=== PATIENT | female | born 1950 | race Caucasian/White ===

== ENCOUNTER 2018-03-27 16:09 | Emergency (ER) | payer MEDICARE, BC ==
[~2018-03-27] VITALS: Ht 157.5 cm; Wt 54.5 kg
[2018-03-27 16:15] VITALS: Ht 157.5 cm; Wt 54.5 kg
[2018-03-27 17:44] LABS: BASOPHILS 0.5 % (0-2); HEMATOCRIT 30.9 % (36.0-48.0); HEMOGLOBIN 9.8 g/dL (12-16); IMMATURE GRANULOCYTES 0.3 % (0-5); LYMPHOCYTES 21.5 % (15-50); MCH 30.6 pg (26.0-34.0); MCHC 31.7 g/dL (31.0-37.0); MCV 96.6 fL (80.0-100.0); MEAN PLATELET VOLUME 8.5 fL (7.4-10.4); MONOCYTES 6.5 % (2-11); NEUTROPHILS 62.2 % (40-80); PLATELET COUNT 471 10x3/uL (130-400); RDW 13.3 % (11.5-14.5)
[2018-03-27 18:09] LABS: ALBUMIN 2.6 g/dL (3.4-5.0); ALKALINE PHOSPHATASE 122 U/L (46-116); ALT (SGPT) 18 U/L (10-68); APTT 29.5 SECONDS (22.8-39.4); BILIRUBIN - TOTAL 0.09 mg/dL (0.2-1.3); CALC OSMOLALITY 287 mosm/kg (275-300); CALCIUM 8.1 mg/dL (8.5-10.1); CARBON DIOXIDE 30.1 mmol/L (21.0-32.0); CHLORIDE - SERUM 107 mmol/L (98-107); CREATININE - SERUM 0.6 mg/dL (0.6-1.3); GLUCOSE 151 mg/dL (74-106); INR 1.09 (0.85-1.17); POTASSIUM - SERUM 4.2 mmol/L (3.5-5.1); PROTEIN - SERUM 5.9 g/dL (6.4-8.2); PROTIME 13.7 SECONDS (11.6-15.0); SODIUM 143 mmol/L (136-145); UREA NITROGEN 12 mg/dL (7-18); eGFR NON AFRICAN AMERICAN > 90 mL/min (90-120)
[2018-03-27 18:54] LABS: CKMB 1.1 U/L (0.0-3.6); CREATINE KINASE 39 UL (21-215); MAGNESIUM - SERUM 2.1 mg/dL (1.8-2.4); PRO BNP 1280 pg/mL (0-125)
[2018-03-27 18:59] LABS: TROPONIN-I 0.503 ng/mL (0.000-0.060)
[2018-03-27 19:38] VITALS: BP 119/60
== END 2018-03-27 19:38 | disposition home or self-care (01) ==
LOC: D.ER 16:09
PROVIDERS: Family Medicine
DX: I47.1 Supraventricular tachycardia (principal); E05.00 Thyrotoxicosis with diffuse goiter without thyrotoxic crisis or storm; I10 Essential (primary) hypertension; F17.200 Nicotine dependence, unspecified, uncomplicated

== ENCOUNTER 2018-10-26 20:49 | Inpatient (IN) | payer MEDICARE, BC ==
[~2018-10-26] VITALS: Ht 157.5 cm; Wt 55.1 kg
--- NOTE | ~2018-10-26 | HEMODYNAMI ---
PATIENT:MARITA LARRY MEDICAL RECORD: [id number] : 50 LOCATION:[facility] D2305 ADMISSION DATE: 10/26/18 Generatedon:10/29/201811:32 Patient name: MARITA LARRY Patient #: [id number] SSN: : 1950 Date of study: 10/29/2018 Page: Of Hemodynamic Procedure Report Patient Data Patient Demographics Procedure consent was obtained First Name: MARITA Gender: Female Last Name: LARON : 1950 Patient #: [id number] Age: 67 year(s) Race: Unknown Additional ID: [id number] Contact details [address]: [address] [place] [address] [place]ard[place] State: [place] City: [facility] Zip code: [address] Past Medical History Allergies Allergen Reaction Date Comments Reported Other allergy 10/29/2018 hydrocodone, levofloxacin Admission Admission Data Admission Date: 10/26/2018 Admission Time: 23:52 Room #: D2305 Height (in.): 62 BSA: 1.53 (m2) Height (cm.): 157.48 BMI: 21.77 (kg/m2) Weight (lbs.): 119 Weight (kg.): 53.98 Procedure Procedure Types Cath Procedure Peripheral Cath Diagnostic Procedure Abd/Extremity Aortagram Procedure Description Procedure Date Procedure Date: 10/29/2018 Procedure Start Time: 10:27 Procedure Staff Name Function Morgan Patel MD Performing Physician Gayatri Diaz RT Track Superintendent Shweta Castaneda RN Nurse Ankit Yee RT Scrub Procedure Data Cath Procedure Fluoroscopy Diagnostic fluoroscopy Total fluoroscopy Time: time: 10.1 min 10.1 min Diagnostic fluoroscopy Total fluoroscopy dose: 146 dose: 146 mGy mGy Contrast Material Contrast Material Type Amount (ml) Isovue 300 175 Entry Location Entry Primary Successful Side Size Upsize Upsize Entry Closure Succes sful Closure Location (Fr) 1 (Fr) 2 (Fr) Remarks Device Remarks Femoral Exoseal artery Diagnostic catheters Device Type Used For End Catheter Placement Merit ULTRA BOLUS FLUSH 5Fr 90CM catheter ([id number]) Merit 5Fr Mikaless catheter ([id number]) Procedure Medications Medication Administration Route Dosage Lidocaine 1% added to field 20 Heparin Flush Bag added to field 3 bags (1000units/500ml NS) Versed I.V. 1 mg Fentanyl I.V. 50 mcg Benadryl I.V. 25 mg Versed I.V. 1 mg Fentanyl I.V. 50 mcg Versed I.V. 1 mg Versed I.V. 1 mg Hemodynamics Rest BSA: 1.53 (m2) O2 Consumption: Estimated: 140.67 (ml/min) O2 Consumption indexed : Estimated:91.94 (ml/min/m) Heart Rate: 68 (bpm) Snapshots Pre Cath Intra NCS Post Cath Vital Signs Time Heart Resp SPO2 etCO2 NIBP (mmHg) Rhythm Pain Sedation Rate (ipm) (%) (mmHg) Status Level (bpm) 10:20:57 68 23 89 32.2 135/66(86) NSR 0 (11) 9(A) , No pain 10:28:48 68 16 94 26.9 140/62(112) NSR 0 (11) 9(A) , No pain 10:33:08 64 94 17.9 135/62(98) NSR 0 (11) 9(A) , No pain 10:37:24 64 39 92 47.1 113/57(75) NSR 0 (11) 8(A) , No pain 10:41:38 65 13 94 1.4 117/55(76) NSR 0 (11) 8(A) , No pain 10:45:54 66 9 97 8.9 116/58(78) NSR 0 (11) 8(A) , No pain 10:50:06 71 10 98 10.4 123/60(84) NSR 0 (11) 8(A) , No pain 10:54:24 66 11 98 8.9 133/57(107) NSR 0 (11) 8(A) , No pain 10:58:44 68 14 98 9.7 141/60(85) NSR 0 (11) 8(A) , No pain 11:03:05 67 15 98 10.4 139/66(85) NSR 0 (11) 8(A) , No pain 11:08:04 76 15 98 11.9 Measuring NSR 0 (11) 8(A) , No pain 11:08:20 75 15 98 10.4 133/73(95) NSR 0 (11) 8(A) , No pain 11:12:36 69 13 98 13.4 146/73(89) NSR 0 (11) 8(A) , No pain 11:16:52 70 13 98 32.9 138/66(94) NSR 0 (11) 8(A) , No pain 11:21:06 69 17 98 23.2 123/61(106) NSR 0 (11) 8(A) , No pain 11:25:20 67 14 98 8.9 141/68(100) NSR 0 (11) 8(A) , No pain 11:29:36 67 14 98 11.2 140/66(98) NSR 0 (11) 8(A) , No pain Medications Time Medication Route Dose Verified Delivered Reason Notes Effe ctiveness by by 10:19:10 Lidocaine 1% added 20ml Morgan Mora for local to vial Patel Patel anesthetic field MD RODRÍGUEZ 10:19:25 Heparin Flush added 3 Morgan Mora used for Bag to bags Patel Patel procedure (1000units/500ml field MD RODRÍGUEZ NS) 10:28:53 Versed I.V. 1 mg Morgan Rock for Patel Leonel RN sedation 10:29:04 Fentanyl I.V. 50 Morgan Shweta for mcg Patel Leonel RN sedation 10:30:18 Benadryl I.V. 25 mg Morgan Buchananody for Patel Leonel RN sedation 10:33:09 Versed I.V. 1 mg Morgan Shweta for Patel Leonel RN sedation 10:33:17 Fentanyl I.V. 50 Morgan Shweta for mcg Patel Leonel RN sedation 11:08:55 Versed I.V. 1 mg Morgan Shweta for Patel Leonel RN sedation 11:12:29 Versed I.V. 1 mg Morgan Shweta for Patel Leonel RN sedation Procedure Log Time Note 9:54:35 Patient Height : 62 inches 9:54:41 Patient Weight : 119 lbs 9:55:21 Use device set IR Diagnostic 9:55:24 Tegaderm 4 x 4 (1626W) opened to sterile field. 9:55:25 Sterile Angiographic Pack opened to sterile field. 9:55:27 Bag Decanter (2002S) opened to sterile field. 9:55:27 ACIST Manifold (09849) opened to sterile field. 9:55:28 ACIST Hand Control (39780) opened to sterile field. 9:55:29 ACIST Syringe (33273) opened to sterile field. 9:55:35 - 10:00:29 Time tracking: Regular hours (M-F 7:00 - 5:00) 10:01:05 Plan of Care:Hemodynamics will remain stable., Cardiac rhythm will remain stable., Comfort level will be maintained., Respiratory function will remain adequate., Patient/ family verbilizes understanding of procedure., Procedure tolerated without complication., Recovers from procedure without complications.. 10:01:12 Patient received from ICU to IR Alert and oriented. Tansferred to table in Supine position. 10:01:14 Signed procedure consent form obtained from patient. 10:01:19 H&P Date Dictated: 10/29/2018 Within 30 days and on chart.. 10:01:22 Pre-procedure instructions explained to patient. 10:01:22 Pre-op teaching completed and patient verbalized understanding. 10:01:24 Family in waiting room. 10:01:26 Patient NPO since Midnight. 10:02:54 Patient allergic to Other allergyhydrocodone, levofloxacin 10:03:00 Is the patient allergic to Iodine/contrast media? No. 10:03:04 Is patient on blood thinner?No 10:03:07 Patient diabetic? No. 10:03:10 - 10:03:11 ----Pre-sedation anethsthesia assessment.---- 10:03:15 Previous problem with sedation/anesthesia? No ? 10:03:22 Snore? Yes 10:03:24 Sleep apnea? No 10:03:26 Deviated septum? No 10:03:28 Opens mouth fully? Yes 10:03:30 Sticks out tongue? Yes 10:03:54 Airway obstruction? No ? 10:04:00 Dentures? No ? 10:04:03 - 10:04:35 Pre procedure: right dorsailis pedis pulse 2+ Normal; easily identifiable; not easily obliterated 10:04:47 Pre procedure: left dorsailis pedis pulse 2+ Normal; easily identifiable; not easily obliterated 10:05:37 Pre procedure: right posterior tibial pulse 2+ Normal; easily identifiable; not easily obliterated 10:06:14 Pre procedure: left posterior tibial pulse 1+ Palpable, but thready & weak; easily obliterated 10:06:30 IV patent on arrival in left antecubital with D5/.45%NaCl at KVO. 10:06:37 Right groin area was prepped with chlora-prep and draped in sterile fashion 10:06:39 - 10:06:57 PERCUTANEOUS ENTRY 19GA needle opened to sterile field. 10:06:58 SHEATH 5FR [place] (HQY093) opened to sterile field. 10:07:07 DOC .035 wire (B61991) opened to sterile field. 10:19:10 Lidocaine 1% 20ml vial added to field was administered by Morgan Patel MD; for local anesthetic; 10:19:25 Heparin Flush Bag (1000units/500ml NS) 3 bags added to field was administered by Morgan Patel MD; used for procedure; 10::46 Physician arrived 10::49 --------ALL STOP TIME OUT------ 10::50 Final Timeout: patient, procedure, and site verified with staff and physician. All members of the team are in agreement. 10::50 Final Timeout: patient, procedure, and site verified with staff and physician. All members of the team are in agreement. 10::07 Procedure started. 10::08 Full Disclosure recording started 10:27:11 Local anesthetic to right femoral artery with Lidocaine 1% by Morgan Patel MD.INITIAL ACCESS ONLY 10::32 A [employer] Technologies ULTRA BOLUS FLUSH 5Fr 90CM catheter ([id number]) was advanced over the wire and used for . 10::41 ECG and BP/O2 sat monitors applied to patient. 10::41 Vital chart was started 10::42 Baseline sample Acquired. 10:28:53 Versed 1 mg I.V. was administered by Shweta Castaneda RN; for sedation; 10:29:04 Fentanyl 50 mcg I.V. was administered by Shweta Castaneda RN; for sedation ; 10:30:18 Benadryl 25 mg I.V. was administered by Shweta Castaneda RN; for sedation; 10:33:09 Versed 1 mg I.V. was administered by Shweta Castaneda RN; for sedation; 10:33:17 Fentanyl 50 mcg I.V. was administered by Shweta Castaneda RN; for sedation ; 10:33:29 GLIDE CATHETER 5FR ANGLED 65cm (CG507) opened to sterile field. 10:35:00 GLIDE WIRE ANGLE 180cm (YW2651) opened to sterile field. 10:35:13 TORQUE DEVICE PLASTIC .038 ( TD01) opened to sterile field. 10:37:44 A [employer] Technologies 5Fr Mikaless catheter (186943) was advanced over the wire and used for . 10:55:20 RENEGADE HI-MARY microcatheter ([id number]) opened to sterile field. 10:55:21 TRANSEND STEERABLE wire ([id number]) opened to sterile field. 11:07:41 COIL Positioning Wire ([id number]) opened to sterile field. 11:08:55 Versed 1 mg I.V. was administered by Shweta Castaneda RN; for sedation; 11:09:52 COIL Micronester 3mm (I08532) opened to sterile field. 11:11:24 COIL Vortex Marce 18 3X3 ([id number]) opened to sterile field. 11:11:24 COIL Vortex Marce 18 3X3 ([id number]) opened to sterile field. 11:12:29 Versed 1 mg I.V. was administered by Shweta Castaneda RN; for sedation; 11:17:35 EXOSEAL 5Fr (EX500) opened to sterile field. 11:22:30 Sheath removed intact; hemostasis achieved with Exoseal to the Femoral artery. 11:22:30 A sheath was inserted into the Femoral artery 11:22:35 Procedure ended.(Physican Out) 11:22:57 Fluoroscopy time 10.10 minutes. 11:23:14 Flurop Dose total: 146 11:23:14 Fluoroscopy dose: 146 mGy 11:23:19 Contrast amount:Isovue 300 175ml. 11:23:22 Procedure and supply charges have been captured, reviewed, submitted an d are correct. 11:28:11 Report given to ICU. 11:32:08 Vital chart was stopped Device Usage Item Name Manufacture Quantity Catalog Number [facility] Lot# / Charge Number Stock Stock Serial# Code Tegaderm 4 x 4 3M 1 [id number] 313593 5 (1626W) Sterile Cardinal 1 [id number] 108829 786721 5 Angiographic Health Pack Bag Decanter Microtek 1 038031 15409 709785 5 () Medical Inc. ACIST Manifold Acist 1 87113 806930 810241 420962 5 (68846) Medical Systems Inc ACIST Hand Acist 1 70450 295577 842140 263404 5 Control Medical (52596) Systems Inc ACIST Syringe Acist 1 70840 673826 101636 990039 20 (77338) Medical Systems Inc PERCUTANEOUS Cook Medical 1 H15538 197498 180739 5 9455846 ENTRY 19GA needle SHEATH 5FR Terumo 1 KKM558 843190 500607 311238 5 Eldorado (OGD214) DOC .035 wire Cook Medical 1 N56038 561760 260774 5 (S83633) Merit ULTRA Merit 1 [id number] 283383 973334 5 BOLUS FLUSH Medical 5Fr 90CM catheter ([id number]) GLIDE CATHETER Terumo 1 CG507 889353 500447 5 5FR ANGLED 65cm (CG507) GLIDE WIRE Terumo 1 VY9302 888339 383960 592937 5 ANGLE 180cm (LK3716) TORQUE DEVICE [place] 1 TD01 882524 878005 431939 5 PLASTIC .038 ( Scientific TD01) Merit 5Fr Merit 1 921582 442631 255789 5 [facility] Medical catheter (737702) RENEGADE [place] 1 [id number] 852517 877043 5 HI-MARY Scientific microcatheter ([id number]) TRANSEND [place] 1 [id number] 631843 074507 5 STEERABLE wire Scientific ([id number]) COIL [place] 1 [id number] 496827 355760 084544 5 Positioning Scientific Wire ([id number]) COIL Cook Medical 1 K20282 341512 767933 1 6932708 Micronester 3mm (L23191) COIL Vortex Cook Medical 2 [id number] 360692 491638 5 [id number] Marce 18 3X3 [id number] ([id number]) EXOSEAL 5Fr Cardinal 1 EX500 700430 024865 104923 10 [id number] (EX500) Health Signature Audit [place] Stage Time Signature Unsigned Intra-Procedure 10/29/2018 Gayatri Diaz 11:31:57 AM RT(R) [address] [address]
[2018-10-26 21:39] LABS: BASOPHILS 0.5 % (0-2); EOSINOPHILS 5.8 % (0-7); HEMATOCRIT 45.5 % (36.0-48.0); HEMOGLOBIN 15.1 g/dL (12-16); IMMATURE GRANULOCYTES 0.1 % (0-5); LYMPHOCYTES 39.6 % (15-50); MCH 31.6 pg (26.0-34.0); MCHC 33.2 g/dL (31.0-37.0); MCV 95.2 fL (80.0-100.0); MEAN PLATELET VOLUME 9.1 fL (7.4-10.4); PLATELET COUNT 370 10x3/uL (130-400); RBC 4.78 10x6/uL (4.00-5.40); RDW 13.6 % (11.5-14.5); WBC 8.5 10x3/uL (4.8-10.8)
[2018-10-26 21:45] VITALS: BP 171/78
[2018-10-26 21:46] LABS: APTT 32.5 SECONDS (22.8-39.4)
[2018-10-26 21:47] LABS: INR 0.99 (0.85-1.17); PROTIME 12.6 SECONDS (11.6-15.0)
[2018-10-26 21:48] LABS: D-DIMER-QUANTITATIVE 0.92 ug/mLFEU (0.20-0.54)
[2018-10-26 21:53] LABS: ALBUMIN 3.6 g/dL (3.4-5.0); ALKALINE PHOSPHATASE 97 U/L (46-116); ALT (SGPT) 35 U/L (10-68); BILIRUBIN - TOTAL 0.17 mg/dL (0.2-1.3); CALC OSMOLALITY 286 mosm/kg (275-300); CALCIUM 8.9 mg/dL (8.5-10.1); CARBON DIOXIDE 30.9 mmol/L (21.0-32.0); CHLORIDE - SERUM 105 mmol/L (98-107); CREATININE - SERUM 0.6 mg/dL (0.6-1.3); GLUCOSE 98 mg/dL (74-106); POTASSIUM - SERUM 3.7 mmol/L (3.5-5.1); SODIUM 144 mmol/L (136-145); UREA NITROGEN 12 mg/dL (7-18); eGFR NON AFRICAN AMERICAN > 90 mL/min (90-120)
[2018-10-26 22:09] LABS: CKMB 0.5 U/L (0.0-3.6); CREATINE KINASE 101 UL (21-215); PRO BNP 169 pg/mL (0-125)
[2018-10-26 22:15] VITALS: BP 138/72
[2018-10-26 22:15] LABS: TROPONIN-I 0.224 ng/mL (0.000-0.060)
--- NOTE | 2018-10-26 22:50 | NUR ---
PT COUGHING UP MORE BLOOD AT THIS TIME MD INFORMED SEE EMAR. DR CHELSI DOMINGUEZ. PT UNABLE TO LAY FLAT FOR CTA
[2018-10-26 22:52] VITALS: BP 166/62
[2018-10-26 22:55] VITALS: BP 152/71
[2018-10-26 23:00] VITALS: BP 152/77
--- NOTE | 2018-10-26 23:20 | NUR ---
PT TAKEN TO CT AT THIS TIME. COUGHING/ BLEEDING LESSENED AT THIS TIME.
--- NOTE | 2018-10-26 23:32 | NUR ---
DR GAGNON AT BEDSIDE
[2018-10-26 23:34] VITALS: BP 109/64
[2018-10-26] MEDS ORDERED: NORVASC2.5 MG PO (23:35)
[2018-10-26] MEDS ORDERED: OS-CAL500 MG (23:35)
[2018-10-26] MEDS ORDERED: XANAX0.25 MG PO (23:36)
[2018-10-26] MEDS ORDERED: BAYER ASPIRIN325 MG PO (23:36)
[2018-10-26] MEDS ORDERED: BYSTOLIC5 MG PO (23:36)
[2018-10-26] MEDS ORDERED: METOLAZONE5 MG PO (23:36)
[2018-10-26] MEDS ORDERED: FIBERCON625 MG PO (23:36)
[2018-10-26] MEDS ORDERED: CRESTOR5 MG PO (23:37)
[2018-10-26] MEDS ORDERED: MOTRIN600 MG PEG (23:40)
[2018-10-27] VITALS (33 sets, daily range): BP systolic 94–173; BP diastolic 63–91; BMI 21.5; BMI 21.4
--- NOTE | 2018-10-27 | NUR ---
LAB AT BEDSIDE FOR SEBASTIÁN MILLER. PT INFORMED SHE WILL BE ADMITED PT OK WITH POC DAUGHTER AND SON AT BEDSIDE
--- NOTE | 2018-10-27 01:14 | NUR ---
PT ARRIVED ON UNIT VIA WHEELCHAIR ACCOMPANIED BY ER STAFF. COMPLAINS OF SHOULDER PAIN, REQUESTS IBUPROFEN AND ALPRAZOLAM, EXPLAINED TO PATIENT THAT THE HAS NOT RESTARTED ANY HOME MEDS AT THIS TIME AND SHE WOULD NEED TO SPEAK WITH HIM ABOUT SAID MEDICATIONS IN THE MORNING. ASSESSMENT COMPLETED SEE FLOWSHEET. VSS W/ ELEVATED SYSTOLIC NOTED - CPOC
--- NOTE | 2018-10-27 03:00 | NUR ---
REASSESSMENT COMPLETED SEE FLOWSHEET
--- NOTE | 2018-10-27 04:56 | NUR ---
PATIENT RESTING WITH EYES CLOSED EVEN RISE AND FALL OF CHEST NO APPARANT DISTRESS, VSS CPOC
--- NOTE | 2018-10-27 09:53 | NUR ---
0700 ASSESSMENT COMPLETE VOICES NO C/O PAIN
--- NOTE | 2018-10-27 09:54 | NUR ---
0900 DR MCGUIRE AT BEDSIDE UPDATING PATIENT ON HIS PLAN OF CARE FOR HER. SCHEDULED BRONCHOSCOPY FOR 1100AM CONSENTS ARE SIGNED
--- NOTE | 2018-10-27 11:07 | NUR ---
MOR[JAIMIE 2MG AND ZOFRAN 8MG HAVE BEEN GIVEN IV PREOP FOR BRONCHOSCOPY ALLOWED DTR TO COME IN FOR A BRIEF MONENT PRIOR TO PROCEEDURE
--- NOTE | 2018-10-27 12:04 | NUR ---
1100 BRONCH TEAM PREPARING PATIENT AND EQUIPMENT FOR BRONCH
--- NOTE | 2018-10-27 12:17 | NUR ---
1045 ONLY GAVE 2MG OF MORPHINE PER MD
--- NOTE | 2018-10-27 12:17 | NUR ---
1215 [facility] BEGAN WITH GHADA AND DR Bette MCGUIRE
--- NOTE | 2018-10-27 12:49 | NUR ---
1249 AWAKE AND ALERT ASKING QUESTIONS PLACED ON OXYMIZER AT 15L
--- NOTE | 2018-10-27 13:12 | NUR ---
1250 INSTRUCTED NPO UNTIL 1345. VERBALIZED UNDERSTANDING
--- NOTE | 2018-10-27 18:33 | NUR ---
1350 ICE CHIPS GIVEN AMALIA WELL
--- NOTE | 2018-10-27 18:34 | NUR ---
1500 RESTING QUIETLY NO DISTRESS NOTED
--- NOTE | 2018-10-27 18:34 | NUR ---
1700 APPLESAUSE GIVEN AFTWE ZOFRAN 4MG IV GIVEN.
--- NOTE | 2018-10-27 19:34 | NUR ---
BEDSIDE SHIFT REPORT GIVEN BY DEPARTING RN USING SBAR. PT LAYING IN BED WITH EYES CLOSED. AAOX4. C/O BACK, SHOULDER, AND EYE PAIN RATING IT A 8/10 ON SCALE. VSS. VOICES NO NEEDS AT THIS TIME. C/O OF NAUSEA THAT COMES AND GOES. RT AC PIV SALINE LOCKED. ASSESSMENT COMPLETE. SEE FLOWSHEET FOR FULL DETAILS. SAFETY PRECAUTIONS IN PLACE. CBIR. WILL CONTINUE TO MONITOR.
--- NOTE | 2018-10-27 20:28 | NUR ---
FAMILY AT BEDSIDE. UPDATE GIVEN. ALL QUESTIONS ANSWERED.
--- NOTE | 2018-10-27 20:28 | NUR ---
FAMILY CALLED FOR UPDATE. PASSWORD GIVEN. ALL QUESTIONS ANSWERED.
--- NOTE | 2018-10-27 20:34 | NUR ---
HS MEDS GIVEN. SEE MAR FOR DETAILS. SWALLOWED PO MEDS WITHOUT DIFFICULTY.
--- NOTE | 2018-10-27 23:51 | NUR ---
REASSESSMENT COMPLETE. NO CHANGES NOTED. PT ASLEEP SHOWING NO SS OF DISTRESS.
[2018-10-28] VITALS (24 sets, daily range): BP systolic 93–162; BP diastolic 55–104
[2018-10-28 04:32] LABS: BASOPHILS 0.1 % (0-2); EOSINOPHILS 0.4 % (0-7); HEMATOCRIT 40.8 % (36.0-48.0); HEMOGLOBIN 13.1 g/dL (12-16); IMMATURE GRANULOCYTES 0.2 % (0-5); LYMPHOCYTES 17.6 % (15-50); MCH 30.9 pg (26.0-34.0); MCHC 32.1 g/dL (31.0-37.0); MCV 96.2 fL (80.0-100.0); MEAN PLATELET VOLUME 9.4 fL (7.4-10.4); MONOCYTES 5.2 % (2-11); NEUTROPHILS 76.5 % (40-80); PLATELET COUNT 342 10x3/uL (130-400); RBC 4.24 10x6/uL (4.00-5.40); RDW 13.6 % (11.5-14.5)
[2018-10-28 04:39] LABS: WBC 13.6 10x3/uL (4.8-10.8)
[2018-10-28 04:42] LABS: APTT 33.4 SECONDS (22.8-39.4); INR 1.15 (0.85-1.17); PROTIME 14.2 SECONDS (11.6-15.0)
[2018-10-28 04:44] LABS: CALC OSMOLALITY 280 mosm/kg (275-300); CALCIUM 7.9 mg/dL (8.5-10.1); CARBON DIOXIDE 28.9 mmol/L (21.0-32.0); CHLORIDE - SERUM 101 mmol/L (98-107); CREATININE - SERUM 0.7 mg/dL (0.6-1.3); GLUCOSE 101 mg/dL (74-106); MAGNESIUM - SERUM 1.8 mg/dL (1.8-2.4); PHOSPHOROUS 3.8 mg/dL (2.5-4.9); POTASSIUM - SERUM 3.6 mmol/L (3.5-5.1); SODIUM 139 mmol/L (136-145); eGFR NON AFRICAN AMERICAN 88 mL/min (90-120)
[2018-10-28 04:51] LABS: UREA NITROGEN 21 mg/dL (7-18)
--- NOTE | 2018-10-28 07:15 | NUR ---
REPORT RECEIVED. ASSESSMENT COMPLETE PER FLOW SHEET. REFER FOR FINDINGS. VSS DENIES NEEDS WILL CONTINUE TO MONITOR
--- NOTE | 2018-10-28 08:00 | NUR ---
ATE 75% BREAKFAST
--- NOTE | 2018-10-28 08:27 | NUR ---
PT ASSISTED TO BEDSIDE COMMODE. LARGE BM NTOED.
--- NOTE | 2018-10-28 09:00 | NUR ---
MEDS ADM ATE 40% BREAKFAST DENIES NEEDS
--- NOTE | 2018-10-28 11:00 | NUR ---
REASSESSMENT OCMPLETE PER FLOW SHEET. VSS. NO NEW CHANGE DR DOUGHERTY AT BEDSIDE. GIVEN UDPATE.
--- NOTE | 2018-10-28 13:00 | NUR ---
ASSISTED TO BEDSIDE COMMODE LARGE LOOSE BM NTOED.
--- NOTE | 2018-10-28 15:00 | NUR ---
REASSESSMENT COMPLETE PER FLOW SHEET. VSS. NO NEW CHANGES WILL CONTINUE TO MONITOR
--- NOTE | 2018-10-28 16:58 | NUR ---
FAMILY AT BEDSIDE. GIVEN UDPATE.
--- NOTE | 2018-10-28 17:55 | MORECARE ---
CASE MANAGEMENT DISCHARGE SUMMARY PATIENT: MARITA LARRY UNIT: [id number] ADM DATE: 10/26/18 AGE: 67 : 50 SEX: F ROOM/BED: D.2305 AUTHOR: ZHAO ANTONIO PHYSICIAN: REFERRING PHYSICIAN: ANGELA JIANG MD DATE OF SERVICE: 10/28/18 Discharge Plan Patient Name: MARITA LARRY [facility] [facility] 1950 Planned Disposition: Anticipated Discharge Date: Discharge Date: Expected LOS: Initial Reviewer: [email or web address] Initial Review Date: 10/27/2018 Generated: 10/28/18 6:55 pm Comments DCP- Discharge Planning Updated by [email or web address]: Carola Pandey on 10/28/18 3:[address] CM attempted to meet with patient she is currently having bronchoscopy . CM will come back and evaluate at a later time. CM will continue to follow and assist as needed with discharge planning/ needs. Patient Name: MARITA LARRY Page [phone] at 1755 All edits/amendments must be made on the electronic document DICTATION DATE: 10/28/181754 DATA REPORT ANALYST: MARIA ANTONIA 10/28/181754 RPT#: [id number] DC DATE: STATUS: ADM IN [facility] [address] [place] [address] END OF REPORT
[2018-10-28 19:09] LABS: ACID FAST SMEAR Negative (()); AFB SPECIMEN PROCESSING Concentration (())
--- NOTE | 2018-10-28 20:02 | NUR ---
1930-FOUND PATIENT STANDING IN DOORWAY. ASK PATIENT WHAT SHE NEEDED AND SHE STATED SHE THOUGH SOMEONE WANTED TO SEE HER OR CALLED FOR HER. PATIENT HAD ALL LINES AND BLOOD PRESSURE CUFF WRAPPED AROUND LEGS. ASSISTED PATIENT BACK TO BED AND ASK HER TO PLEASE CALL NURSES BEFORE SHE GETS UP; SHE STATED CALL LIGHT WOULD NOT WORK. FOUND PATIENT CALL LIGHT LAYING ON BED BESIDE HER AND PUSHED THE RED NURSE CALL ENRIQUEZ AND THE LIGHT CAME ON IMMEDIATLEY. REORIENTED PATIENT TO CALL LIGHT AND THAT IT WAS WORKING AND ASK IF SHE WOULD CALL US BEFORE GETTING UP TO HELP PREVENT HER FROM FALLING. PATIENT STATES SHE WILL USE CALL LIGHT.
[2018-10-29] VITALS (22 sets, daily range): BP systolic 111–143; BP diastolic 59–83
[2018-10-29 04:17] LABS: BASOPHILS 0.2 % (0-2); HEMATOCRIT 38.2 % (36.0-48.0); HEMOGLOBIN 12.3 g/dL (12-16); IMMATURE GRANULOCYTES 0.3 % (0-5); LYMPHOCYTES 19.3 % (15-50); MCH 31.1 pg (26.0-34.0); MCHC 32.2 g/dL (31.0-37.0); MCV 96.5 fL (80.0-100.0); MEAN PLATELET VOLUME 9.5 fL (7.4-10.4); MONOCYTES 5.7 % (2-11); NEUTROPHILS 73.5 % (40-80); PLATELET COUNT 304 10x3/uL (130-400); RBC 3.96 10x6/uL (4.00-5.40); RDW 13.4 % (11.5-14.5); WBC 10.9 10x3/uL (4.8-10.8)
[2018-10-29 04:30] LABS: INR 1.07 (0.85-1.17); PROTIME 13.4 SECONDS (11.6-15.0)
[2018-10-29 04:41] LABS: ALBUMIN 2.7 g/dL (3.4-5.0); ALKALINE PHOSPHATASE 80 U/L (46-116); ALT (SGPT) 28 U/L (10-68); BILIRUBIN - TOTAL 0.26 mg/dL (0.2-1.3); CALC OSMOLALITY 280 mosm/kg (275-300); CALCIUM 8.1 mg/dL (8.5-10.1); CARBON DIOXIDE 31.7 mmol/L (21.0-32.0); CHLORIDE - SERUM 101 mmol/L (98-107); CREATININE - SERUM 0.6 mg/dL (0.6-1.3); GLUCOSE 102 mg/dL (74-106); POTASSIUM - SERUM 3.5 mmol/L (3.5-5.1); PROTEIN - SERUM 6.6 g/dL (6.4-8.2); SODIUM 140 mmol/L (136-145); UREA NITROGEN 18 mg/dL (7-18); eGFR NON AFRICAN AMERICAN > 90 mL/min (90-120)
--- NOTE | 2018-10-29 07:15 | NUR ---
REPORT RECIEVED. ASSESSMENT COMPLET EPER FLOW SHEET. VSS. CONSENTS OBTAINED QUESTIONS ANSWERED DENIES NEEDS WILL CONTINUE TO MONITOR
--- NOTE | 2018-10-29 10:40 | NUR ---
Nutrition follow-up: Pt s/p bronchoscopy; was NPO Diet advanced and po intake ~60% of meals per nursing labs reviewed +BM Wt: 120# RDN following.
--- NOTE | 2018-10-29 11:40 | NUR ---
REASSESSMENT COMPLETE PER FLOW SHEET. VSS. NO NEW CHANGES
--- NOTE | 2018-10-29 12:00 | NUR ---
PT BACK FROM IR. VSS. DR MCGUIRE GIVEN UPDATE. DAUGHTER LAURA CALLED GIVEN UDPATE. PT GIVEN ICE CHIPS. DENIES NEEDS. WILL CONTINUE TO OMNITOR
[2018-10-29 12:20] LABS: FUNGUS STAIN Final report (())
--- NOTE | 2018-10-29 13:20 | NUR ---
ATE 50% DINNER. FAMILY AT BEDSIDE. DENIES NEEDS
--- NOTE | 2018-10-29 15:14 | NUR ---
REASSESSMENT COMPLETE PER FLOW SHEET VSS NO NEW CHANGES WILL CONTNIUE TO MONITOR
--- NOTE | 2018-10-29 17:20 | NUR ---
FAMILY AT BEDSIDE. GIVEN UPDATE.
--- NOTE | 2018-10-29 18:03 | MORECARE ---
CASE MANAGEMENT DISCHARGE SUMMARY PATIENT: MARITA LARRY UNIT: [id number] ADM DATE: 10/26/18 AGE: 67 : 50 SEX: F ROOM/BED: D.2305 AUTHOR: ZHAO ANTONIO PHYSICIAN: REFERRING PHYSICIAN: ANGELA JIANG MD DATE OF SERVICE: 10/29/18 Discharge Plan Patient Name: MARITA LARRY Facility: [facility]:[place] : 1950 Planned Disposition: Home Anticipated Discharge Date: Discharge Date: Expected LOS: Initial Reviewer: [email or web address] Initial Review Date: 10/27/2018 Generated: 10/29/18 7:03 pm Comments DCP- Discharge Planning Updated by [email or web address]: Carola Pandey on 10/28/18 3:[address] CM attempted to meet with patient she is currently having bronchoscopy . CM will come back and evaluate at a later time. CM will continue to follow and assist as needed with discharge planning/ needs. DCPIA - Discharge Planning Initial Assessment Updated by [email or web address]: Carola Pandey on 10/29/18 6:01 pm * Is the patient Alert and Oriented? Yes * How many steps to enter\exit or inside your home? * PCP DANA * Pharmacy [facility] * Preadmission Environment Home with Family * ADLs Independent * Equipment None * List name and contact numbers for known caregivers / representatives who currently or will assist patient after discharge: KAT CALLY DELEON [phone] FREDERIC CALLY PANCHO [phone] * Verbal permission to speak to the caregivers and representatives has been obtained from the patient. Yes * Community resources currently utilized None * Additional services required to return to the preadmission environment? No * Can the patient safely return to the preadmission environment? Yes * Has this patient been hospitalized within the prior 30 days at any hospital? No Last DP export: 10/28/18 4:55 pm Patient Name: MARITA LARRY Page [id number] at 1803 All edits/amendments must be made on the electronic document DICTATION DATE: 10/29/18 180 [employer] BOATMAN: MARIA ANTONIA 10/29/18 1803 RPT#: [id number] DC DATE: STATUS: ADM IN [facility] [address] [place] [address] END OF REPORT
--- NOTE | 2018-10-29 18:14 | MORECARE ---
CASE MANAGEMENT DISCHARGE SUMMARY PATIENT: MARITA LARRY UNIT: [id number] ADM DATE: 10/26/18 AGE: 67 : 50 SEX: F ROOM/BED: D.2305 AUTHOR: PACO,DOC PHYSICIAN: REFERRING PHYSICIAN: ANGELA JIANG MD DATE OF SERVICE: 10/29/18 Discharge Plan Patient Name: MARITA LARRY Facility: [facility]:[place] : 1950 Planned Disposition: Home Anticipated Discharge Date: Discharge Date: Expected LOS: Initial Reviewer: [email or web address] Initial Review Date: 10/27/2018 Generated: 10/29/18 7:14 pm Comments DCP- Discharge Planning Updated by [email or web address]: Carola Pandey on 10/29/18 5:[address] Patient Name: MARITA LARRY Admission Status: ER Accout number: [id number] Admission Date: 10-26-2018 : 1950 Admission Diagnosis:HEMOPTYSIS Attending: ANGELA JIANG Current LOS: 3 Anticipated DC Date: Planned Disposition: Home Primary Insurance: MEDICARE A & B Discharge Planning Comments: CM met with patient and family at bedside. Patient stated she lives at home with family and plans to return to her home upon discharge. Patient denies any medical equipment or HH in the home prior to admission. Patient denies any discharge needs at this time. CM will continue to follow and assist as needed with discharge planning / needs Groundsman: Carola Pandey DCP- Discharge Planning Updated by [email or web address]: Carola Pandey on 10/28/18 3:[address] CM attempted to meet with patient she is currently having bronchoscopy . CM will come back and evaluate at a later time. CM will continue to follow and assist as needed with discharge planning/ needs. DCPIA - Discharge Planning Initial Assessment Updated by [email or web address]: Carola Pandey on 10/29/18 6:01 pm * Is the patient Alert and Oriented? Yes * How many steps to enter\exit or inside your home? * PCP CORTEZ * Pharmacy [facility] * Preadmission Environment Home with Family * ADLs Independent * Equipment None * List name and contact numbers for known caregivers / representatives who currently or will assist patient after discharge: KAT DELEON - [phone] FREDERIC DELEON - [phone] * Verbal permission to speak to the caregivers and representatives has been obtained from the patient. Yes * Community resources currently utilized None * Additional services required to return to the preadmission environment? No * Can the patient safely return to the preadmission environment? Yes * Has this patient been hospitalized within the prior 30 days at any hospital? No Last DP export: 10/29/18 5:03 pm Patient Name: MARITA LARRY Page [phone] at 1814 All edits/amendments must be made on the electronic document DICTATION DATE: 10/29/181812 PUBLIC BATH ATTENDANT: MARIA ANTONIA 10/29/181812 RPT#: [id number] DC DATE: STATUS: ADM IN [facility] [address] [place] [address] END OF REPORT
[2018-10-30] VITALS (13 sets, daily range): BP systolic 119–165; BP diastolic 59–103; Ht 157.5 cm; Wt 55.1 kg
[2018-10-30 04:36] LABS: BASOPHILS 0.5 % (0-2); HEMATOCRIT 40.7 % (36.0-48.0); HEMOGLOBIN 13.1 g/dL (12-16); IMMATURE GRANULOCYTES 0.1 % (0-5); LYMPHOCYTES 31.4 % (15-50); MCHC 32.2 g/dL (31.0-37.0); MCV 96.4 fL (80.0-100.0); MEAN PLATELET VOLUME 9.4 fL (7.4-10.4); MONOCYTES 7.9 % (2-11); NEUTROPHILS 55.1 % (40-80); PLATELET COUNT 327 10x3/uL (130-400); RBC 4.22 10x6/uL (4.00-5.40); RDW 13.4 % (11.5-14.5); WBC 8.4 10x3/uL (4.8-10.8)
[2018-10-30 05:07] LABS: ALKALINE PHOSPHATASE 91 U/L (46-116); ALT (SGPT) 28 U/L (10-68); BILIRUBIN - TOTAL 0.28 mg/dL (0.2-1.3); CALC OSMOLALITY 282 mosm/kg (275-300); CALCIUM 8.1 mg/dL (8.5-10.1); CARBON DIOXIDE 33.1 mmol/L (21.0-32.0); CHLORIDE - SERUM 102 mmol/L (98-107); CREATININE - SERUM 0.6 mg/dL (0.6-1.3); GLUCOSE 80 mg/dL (74-106); POTASSIUM - SERUM 3.3 mmol/L (3.5-5.1); PROTEIN - SERUM 7.2 g/dL (6.4-8.2); SODIUM 142 mmol/L (136-145); UREA NITROGEN 16 mg/dL (7-18); eGFR NON AFRICAN AMERICAN > 90 mL/min (90-120)
--- NOTE | 2018-10-30 07:30 | NUR ---
REPORT RECEIVED. ASSESSMENT COMPLETE PER FLOW SHEET. VSS. NO NEW CHANGES PT RESTING COMFORTABLY. DR MCGUIRE AT BEDSIDE NEW ORDERS RECEIVED. WILL CONTINUE TO MONITOR
--- NOTE | 2018-10-30 11:20 | NUR ---
ATE 80% LUNCH. DENIES NEEDS WILL CONTINUE TO MONITOR
--- NOTE | 2018-10-30 14:30 | NUR ---
PATIENT IN BED WITH NO COMPLAINTS OR SIGNS OF DISTRESS. IV INTACT. GETS UP AND AMBULATES WITH NO PROBLEM. VS STABLE. WILL CONTINUE TO MONITOR. CALL LIGHT WITHIN REACH.
--- NOTE | 2018-10-30 17:00 | NUR ---
PATIENT AMBULATING IN HALLWAY WITH NO PROBLEMS.
[2018-10-30 18:08] LABS: ACID FAST SMEAR Negative (()); AFB SPECIMEN PROCESSING Concentration (())
--- NOTE | 2018-10-30 19:00 | NUR ---
REPORT RECEIVED AND CARE OF PT ASSUMED. PT SITTING UP IN CHAIR WATCHING TV. IV IN LEFT FA SALINE LOCKED. WILL MONITOR FOR NEEDS.
--- NOTE | 2018-10-30 19:10 | NUR ---
REPORT GIVEN TO CINTHIA MCCLELLAN.
--- NOTE | 2018-10-30 20:33 | NUR ---
PT REQUESTING BENADRYL FOR NOSE ITCHING. CALLED DR BLANCHARD AND RECEIVED ORDER FOR 25 MG PO Q6PRN ITCHING.
--- NOTE | 2018-10-30 21:19 | NUR ---
HS MEDICATIONS GIVEN TO INCLUDE BENADRYL 25 MG PO AND TYLENOL 500 MG PO PER REQUEST, PER PRN ORDERS. WILL CONTINUE TO MONITOR FOR NEEDS.
[2018-10-31 03:38] VITALS: BP 133/59
[2018-10-31 06:20] LABS: HEMATOCRIT 36.3 % (36.0-48.0); HEMOGLOBIN 12.2 g/dL (12-16); LYMPHOCYTES 28.6 % (15-50); MCH 32.1 pg (26.0-34.0); MCHC 33.6 g/dL (31.0-37.0); MCV 95.5 fL (80.0-100.0); MEAN PLATELET VOLUME 8.8 fL (7.4-10.4); NEUTROPHILS 60.9 % (40-80); PLATELET COUNT 296 10x3/uL (130-400); RDW 12.9 % (11.5-14.5); WBC 7.8 10x3/uL (4.8-10.8)
[2018-10-31 06:47] LABS: ALBUMIN 2.8 g/dL (3.4-5.0); ALKALINE PHOSPHATASE 76 U/L (46-116); ALT (SGPT) 22 U/L (10-68); BILIRUBIN - TOTAL 0.27 mg/dL (0.2-1.3); CALC OSMOLALITY 283 mosm/kg (275-300); CALCIUM 8.1 mg/dL (8.5-10.1); CARBON DIOXIDE 27.3 mmol/L (21.0-32.0); CHLORIDE - SERUM 105 mmol/L (98-107); CREATININE - SERUM 0.5 mg/dL (0.6-1.3); GLUCOSE 102 mg/dL (74-106); POTASSIUM - SERUM 3.5 mmol/L (3.5-5.1); PROTEIN - SERUM 6.2 g/dL (6.4-8.2); SODIUM 142 mmol/L (136-145); UREA NITROGEN 14 mg/dL (7-18); eGFR NON AFRICAN AMERICAN > 90 mL/min (90-120)
--- NOTE | 2018-10-31 07:15 | NUR ---
MORNING ASSESMENT COMPLETE. SEE ASSESSMENT FLOWSHEET FOR FURTHER DETAILS. PT LYING IN BED AAO X4 TO PERSON, PLACE, TIME, AND SITUATION. DENIES NEEDS AT THIS TIME. WANTING TO TAKE A SHOWER. CL IN REACH. SIDE RAILS UP X3 FOR PATIENT SAFETY
[2018-10-31 09:07] VITALS: BP 118/64
[2018-10-31 12:21] LABS: FUNGUS STAIN Final report (())
[2018-10-31] MEDS ORDERED: SPIRIVA18 MCG INH (12:22)
[2018-10-31] MEDS ORDERED: ZITHROMAX500 MG PO (12:22)
[2018-10-31] MEDS ORDERED: FLORAJEN3 CAPS460 MG PO (12:22)
[2018-10-31] MEDS ORDERED: Tessalon Perle PO (12:23)
[2018-10-31] MEDS ORDERED: Nicoderm [PBKC] TRANSDERM (12:23)
[2018-10-31] MEDS ORDERED: IPRAT-ALBUT 0.5-3 ML UPD (12:38)
[2018-10-31] MEDS ORDERED: SYMBICORT 16010.2 GM INH (12:38)
[2018-10-31 13:53] VITALS: BP 121/65
--- NOTE | 2018-10-31 14:26 | MORECARE ---
CASE MANAGEMENT DISCHARGE SUMMARY PATIENT: MARITA LARRY UNIT: [id number] ADM DATE: 10/26/18 AGE: 67 : 50 SEX: F ROOM/BED: D.2222 AUTHOR: PACO,DOC PHYSICIAN: REFERRING PHYSICIAN: ANGELA JIANG MD DATE OF SERVICE: 10/31/18 Discharge Plan Patient Name: MARITA LARRY Facility: [facility]:[place] : 1950 Planned Disposition: Home Anticipated Discharge Date: Discharge Date: Expected LOS: Initial Reviewer: [email or web address] Initial Review Date: 10/27/2018 Generated: 10/31/18 3:26 pm Comments DCP- Discharge Planning Updated by [email or web address]: Carola Pandey on 10/29/18 5:[address] Patient Name: MARITA LARRY Admission Status: ER Accout number: [id number] Admission Date: 10-26-2018 : 1950 Admission Diagnosis:HEMOPTYSIS Attending: ANGELA JIANG Current LOS: 3 Anticipated DC Date: Planned Disposition: Home Primary Insurance: MEDICARE A & B Discharge Planning Comments: CM met with patient and family at bedside. Patient stated she lives at home with family and plans to return to her home upon discharge. Patient denies any medical equipment or HH in the home prior to admission. Patient denies any discharge needs at this time. CM will continue to follow and assist as needed with discharge planning / needs Trucksmith: Carola Pandey DCP- Discharge Planning Updated by [email or web address]: Carola Pandey on 10/28/18 3:[address] CM attempted to meet with patient she is currently having bronchoscopy . CM will come back and evaluate at a later time. CM will continue to follow and assist as needed with discharge planning/ needs. DCPIA - Discharge Planning Initial Assessment Updated by [email or web address]: Carola Pandey on 10/29/18 6:01 pm * Is the patient Alert and Oriented? Yes * How many steps to enter\exit or inside your home? * PCP [facility]TE[facility] * Pharmacy [facility] * Preadmission Environment Home with Family * ADLs Independent * Equipment None * List name and contact numbers for known caregivers / representatives who currently or will assist patient after discharge: KAT DELEON - [phone] FREDERIC DELEON - [phone] * Verbal permission to speak to the caregivers and representatives has been obtained from the patient. Yes * Community resources currently utilized None * Additional services required to return to the preadmission environment? No * Can the patient safely return to the preadmission environment? Yes * Has this patient been hospitalized within the prior 30 days at any hospital? No External Providers External Provider: OTHER-OTHER Next Contact Date: Service Request Date: Service Type: Resolution: Reviewer: Comments: Last DP export: 10/29/18 5:14 pm Patient Name: MARITA LARRY Page [id number] at 1426 All edits/amendments must be made on the electronic document DICTATION DATE: 10/31/181425 LINING MARKER: MARIA ANTONIA 10/31/181425 RPT#: [id number] DC DATE: STATUS: ADM IN [facility] [address] [place] [address] END OF REPORT
--- NOTE | 2018-10-31 14:54 | MORECARE ---
CASE MANAGEMENT DISCHARGE SUMMARY PATIENT: MARITA LARRY UNIT: [id number] ADM DATE: 10/26/18 AGE: 67 : 50 SEX: F ROOM/BED: D.2222 AUTHOR: PACO,DOC PHYSICIAN: REFERRING PHYSICIAN: ANGELA JIANG MD DATE OF SERVICE: 10/31/18 Discharge Plan Patient Name: MARITA LARRY Facility: [facility]:[place] : 1950 Planned Disposition: Home Anticipated Discharge Date: Discharge Date: Expected LOS: Initial Reviewer: [email or web address] Initial Review Date: 10/27/2018 Generated: 10/31/18 3:54 pm Comments DCP- Discharge Planning Updated by [email or web address]: Anupama Khoury on 10/31/18 1:[address] Received order for discharge. She would like to use [facility] for Nebulizer. I faxed order and pulmonary note to [phone] and spoke to Namrata. Namrata states they will deliver the nebulizer and neb med to her home tonight. I called Dr. Gaytna's office and Dr. Cortez's office and they do not have sample Symbicort. Patient states she will get it at her pharmacy. I informed her the doctor wrote for home health, she declines. States her daughter can help her and she doesn't want to be tied down to her home waiting for HHS to come. CM will continue to follow and assist with discharge planning/needs. DCP- Discharge Planning Updated by [email or web address]: Carola Pandey on 10/29/18 5:[address] Patient Name: MARITA LARRY Admission Status: ER Accout number: [id number] Admission Date: 10-26-2018 : 1950 Admission Diagnosis:HEMOPTYSIS Attending: ANGELA JIANG Current LOS: 3 Anticipated DC Date: Planned Disposition: Home Primary Insurance: MEDICARE A & B Discharge Planning Comments: CM met with patient and family at bedside. Patient stated she lives at home with family and plans to return to her home upon discharge. Patient denies any medical equipment or HH in the home prior to admission. Patient denies any discharge needs at this time. CM will continue to follow and assist as needed with discharge planning / needs Lymphedema Therapist: Carola Pandey DCP- Discharge Planning Updated by [id number]: Carola Campbellr on 10/28/18 3:[address] CM attempted to meet with patient she is currently having bronchoscopy . CM will come back and evaluate at a later time. CM will continue to follow and assist as needed with discharge planning/ needs. DCPIA - Discharge Planning Initial Assessment Updated by [email or web address]: Carola Dannie on 10/29/18 6:01 pm * Is the patient Alert and Oriented? Yes * How many steps to enter\exit or inside your home? * PCP [facility]TEZ * Pharmacy [facility] * Preadmission Environment Home with Family * ADLs Independent * Equipment None * List name and contact numbers for known caregivers / representatives who currently or will assist patient after discharge: KAT DELEON - [phone] FREDERIC DELEON [phone] * Verbal permission to speak to the caregivers and representatives has been obtained from the patient. Yes * Community resources currently utilized None * Additional services required to return to the preadmission environment? No * Can the patient safely return to the preadmission environment? Yes * Has this patient been hospitalized within the prior 30 days at any hospital? No Coverage Notice Reviewer: [email or web address] Ben Khoury Notice Issued Date-Time: 10/31/2018 14:29 Notice Type: IM Discharge Notice Notice Delivered To: Patient Relationship to Patient: Self Attendant [facility] Name: Delivery Method: HAND - Hand Delivered Mary Days: Prior Verbal Notification: Recipient Understood Notice: Yes Recipient Signature: Yes Med Rec Note Co-signed by Attending: Coverage Notice Comment: IMM explained, signed, given, copy placed in MR Last DP export: 10/31/18 1:26 pm Patient Name: MARITA LARRY Page [id number] at 1454 All edits/amendments must be made on the electronic document DICTATION DATE: 10/31/181452 COSMETICS MACHINE OPERATOR: MARIA ANTONAI 10/31/181452 RPT#: [id number] DC DATE: STATUS: ADM IN [facility] [address] [place] [address] END OF REPORT
--- NOTE | 2018-10-31 16:53 | NUR ---
PT LEFT FLOOR VIA W/C WITH DAUGHTER. WENT OVER ALL D/C INSTRUCTION- STATES UNDERSTANDING OF THEM ALL.
[2018-11-03 11:14] LABS: FUNGUS MYCOLOGY CULTURE Preliminary report (())
[2018-11-05 11:20] LABS: FUNGUS MYCOLOGY CULTURE Preliminary report (())
--- NOTE | 2018-11-05 16:25 | MORECARE ---
CASE MANAGEMENT DISCHARGE SUMMARY PATIENT: MARITA LARRY UNIT: [id number] ADM DATE: 10/26/18 AGE: 67 : 50 SEX: F ROOM/BED: D.2222 AUTHOR: PACODOC PHYSICIAN: REFERRING PHYSICIAN: ANGELA JIANG MD DATE OF SERVICE: 11/05/18 Discharge Plan Patient Name: MARITA LARRY Facility: [facility]:[place] : 1950 Planned Disposition: Home Anticipated Discharge Date: Discharge Date: 10/31/2018 Expected LOS: 0 Initial Reviewer: [email or web address] Initial Review Date: 10/27/2018 Generated: 11/05/18 5:25 pm Comments DCP- Discharge Planning Updated by [email or web address]: Anupama Khoury on 10/31/18 1:[address] Received order for discharge. She would like to use [facility] for Nebulizer. I faxed order and pulmonary note to [phone] and spoke to Namrata. Namrata states they will deliver the nebulizer and neb med to her home tonight. I called Dr. Gaytan's office and Dr. Cortez's office and they do not have sample Symbicort. Patient states she will get it at her pharmacy. I informed her the doctor wrote for home health, she declines. States her daughter can help her and she doesn't want to be tied down to her home waiting for HHS to come. CM will continue to follow and assist with discharge planning/needs. DCP- Discharge Planning Updated by [email or web address]: Carola Pandey on 10/29/18 5:[address] Patient Name: MARITA LARRY Admission Status: ER Accout number: [id number] Admission Date: 10-26-2018 : 1950 Admission Diagnosis:HEMOPTYSIS Attending: ANGELA JIANG Current LOS: 3 Anticipated DC Date: Planned Disposition: Home Primary Insurance: MEDICARE A & B Discharge Planning Comments: CM met with patient and family at bedside. Patient stated she lives at home with family and plans to return to her home upon discharge. Patient denies any medical equipment or HH in the home prior to admission. Patient denies any discharge needs at this time. CM will continue to follow and assist as needed with discharge planning / needs Build And Deployment Engineer: Caroladottie Campbellr DCP- Discharge Planning Updated by [email or web address]: Carola Pandey on 10/28/18 3:[address] CM attempted to meet with patient she is currently having bronchoscopy . CM will come back and evaluate at a later time. CM will continue to follow and assist as needed with discharge planning/ needs. DCPIA - Discharge Planning Initial Assessment Updated by [email or web address]: Carola Pandey on 10/29/18 6:01 pm * Is the patient Alert and Oriented? Yes * How many steps to enter\exit or inside your home? * PCP [facility] * Pharmacy [facility] * Preadmission Environment Home with Family * ADLs Independent * Equipment None * List name and contact numbers for known caregivers / representatives who currently or will assist patient after discharge: KAT DELEON - [phone] FREDERIC DELEON - [phone] * Verbal permission to speak to the caregivers and representatives has been obtained from the patient. Yes * Community resources currently utilized None * Additional services required to return to the preadmission environment? No * Can the patient safely return to the preadmission environment? Yes * Has this patient been hospitalized within the prior 30 days at any hospital? No Coverage Notice Reviewer: [email or web address] Ben Khoury Notice Issued Date-Time: 10/31/2018 14:29 Notice Type: IM Discharge Notice Notice Delivered To: Patient Relationship to Patient: Self School Custodian Name: Delivery Method: HAND - Hand Delivered Mary Days: Prior Verbal Notification: Recipient Understood Notice: Yes Recipient Signature: Yes Med Rec Note Co-signed by Attending: Coverage Notice Comment: IMM explained, signed, given, copy placed in MR Last DP export: 10/31/18 1:54 pm Patient Name: MARITA LARRY Page 54515 at 1625 All edits/amendments must be made on the electronic document DICTATION DATE: 11/05/181624 ELECTRONICS MECHANIC: MARIA ANTONIA 11/05/181624 RPT#: [id number] DC DATE:10/31/18 STATUS: DIS IN [facility] [address] [place] [address] END OF REPORT
== END 2018-10-31 16:54 | disposition home or self-care (01) | DRG 982 ==
LOC: D.ER 20:49 → D.EDHOLD 23:52 → D.ICU 23:52 → D.MS 10-30 13:51
PROVIDERS: Family Medicine; Internal Medicine Pulmonary Disease; Radiology Vascular & Interventional Radiology; Specialist; ADMIT Internal Medicine Nephrology
PROC: 0BC28ZZ Extirpation of Matter from Carina, Via Natural or Artificial Opening Endoscopic (ICD-10-PCS; 2018-10-27)
PROC: 0BC38ZZ Extirpation of Matter from Right Main Bronchus, Via Natural or Artificial Opening Endoscopic (ICD-10-PCS; 2018-10-27)
PROC: 0BC78ZZ Extirpation of Matter from Left Main Bronchus, Via Natural or Artificial Opening Endoscopic (ICD-10-PCS; 2018-10-27)
PROC: 0BC28ZZ Extirpation of Matter from Carina, Via Natural or Artificial Opening Endoscopic (ICD-10-PCS; 2018-10-29)
PROC: 0BC38ZZ Extirpation of Matter from Right Main Bronchus, Via Natural or Artificial Opening Endoscopic (ICD-10-PCS; 2018-10-29)
PROC: 0BC78ZZ Extirpation of Matter from Left Main Bronchus, Via Natural or Artificial Opening Endoscopic (ICD-10-PCS; 2018-10-29)
PROC: 03LY3DZ Occlusion of Upper Artery with Intraluminal Device, Percutaneous Approach (ICD-10-PCS; principal; 2018-10-29 10:00)
DX: J47.9 Bronchiectasis, uncomplicated (principal); R04.89 Hemorrhage from other sites in respiratory passages; I10 Essential (primary) hypertension; E78.5 Hyperlipidemia, unspecified; F17.200 Nicotine dependence, unspecified, uncomplicated; Z95.1 Presence of aortocoronary bypass graft; I77.1 Stricture of artery; I70.298 Other atherosclerosis of native arteries of extremities, other extremity; R91.8 Other nonspecific abnormal finding of lung field

== ENCOUNTER → 2018-12-04 08:16 | Outpatient (CLI) | payer MEDICARE, BC ==
[~2018-12-04 08:16] MED LIST: BAYER ASPIRIN325 MG PO; BYSTOLIC5 MG PO; CRESTOR5 MG PO; FIBERCON625 MG PO; FLORAJEN3 CAPS460 MG PO; IPRAT-ALBUT 0.5-3 ML UPD; METOLAZONE5 MG PO; MOTRIN600 MG PEG; NORVASC2.5 MG PO; Nicoderm [PBKC] TRANSDERM; OS-CAL500 MG; SPIRIVA18 MCG INH; SYMBICORT 16010.2 GM INH; Tessalon Perle PO; XANAX0.25 MG PO; ZITHROMAX500 MG PO
== END | disposition home or self-care (01) ==
LOC: D.RT 08:00
PROVIDERS: ATTEND Internal Medicine Pulmonary Disease
DX: R04.2 Hemoptysis (principal)

== ENCOUNTER 2019-03-31 20:31 | Observation (INO) | payer MEDICARE, BC ==
[~2019-03-31] VITALS: Ht 157.5 cm; Wt 59.9 kg
--- NOTE | ~2019-03-31 | HEMODYNAMI ---
PATIENT:MARITA LARRY MEDICAL RECORD: [id number] : 50 LOCATION[facility] D.[address] [id number] ADMISSION DATE: 03/31/19 Generatedon:04/01/201912:51 Patient name: MARITA LARRY Patient #: [id number] SSN: : 1950 Date of study: 04/01/2019 Page: Of Hemodynamic Procedure Report Patient Data Patient Demographics Procedure consent was obtained First Name: MARITA Gender: Female Last Name: LARON : 1950 [facility] Initial: L Age: 68 year(s) Patient #: [id number] Race: Unknown Additional ID: [id number] Contact details [address]: [address] [place] [address] [employer] State: [place] City: [place] Zip code: [address] Past Medical History Allergies Allergen Reaction Date Comments Reported Other allergy 10/29/2018 hydrocodone, levofloxacin Other allergy 04/01/2019 MORPHINE, HYDROCODONE, LEVAQUIN Admission Admission Data Admission Date: 03/31/2019 Admission Time: 23:52 Room #: D.2138 Weight (lbs.): 132.28 Weight (kg.): 60 Lab Results Lab Result Date: 04/01/2019 Lab Result Time: 1:00 Biochemistry Name Units Result Min Max eGFR ml/min 75 *-(----)-- 90 120 NONAFRICAN Procedure Procedure Types Cath Procedure Diagnostic Procedure LHC LHC w/Coronaries w/Grafts Sedation Charges Moderate Sedation up to 15 minutes PCI Procedure Coronary Stent Coronary Stent Initial Procedure Description Procedure Date Procedure Date: 04/01/2019 Procedure Start Time: 12:31 Procedure End Time: 12:51 Procedure Staff Name Function Tin Bruno MD Performing Physician Miranda Epperson RT Monitor Jayce Trinidad RT Scrub Leena Berman RT Scrub Mihaela Mcdowell RN Nurse Procedure Data Cath Procedure Fluoroscopy Diagnostic fluoroscopy Total fluoroscopy Time: 4.5 time: 4.5 min min Diagnostic fluoroscopy Total fluoroscopy dose: 524 dose: 524 mGy mGy Contrast Material Contrast Material Type Amount (ml) Isovue 300 89 Entry Location Entry Primary Successful Side Size Upsize Upsize Entry Closure Succes sful Closure Location (Fr) 1 (Fr) 2 (Fr) Remarks Device Remarks Femoral Right 5 Fr 6 Fr Exoseal artery Short Estimated blood loss: 10 ml Diagnostic catheters Device Type Used For End Catheter Placement MULTIPACK Pigtail 5 Fr Procedure catheter MULTIPACK JL 4.0 5Fr Procedure catheter MULTIPACK 3DRC 5Fr Procedure catheter DIAGNOSTIC AR2 MOD 5 Fr Procedure catheter ([id number]) Procedure Complications No complications Procedure Medications Medication Administration Route Dosage 0.9% NaCl I.V. 100 ml/hr Oxygen etCO2 Nasal cannula 2 l/min Lidocaine 2% added to field 20 Heparin Flush Bag added to field 2 bags (1000units/500ml NS) Versed I.V. 2 mg Fentanyl I.V. 50 mcg Heparin Bolus I.V. 4000 units Integrilin (Bolus 5.6 ml 2mg/ml) Plavix P.O. 600 mg Hemodynamics Rest HGB: 12.3 (g/dl) Heart Rate: 65 (bpm) Snapshots Pre Cath Intra NCS Post Cath Vital Signs Time Heart Resp SPO2 etCO2 NIBP Rhythm Pain Sedation Rate (ipm) (%) (mmHg) (mmHg) Status Level (bpm) 12:19:22 64 18 96 32.2 112/57(75) NSR 0 (11) 10(A) , No pain 12:23:38 65 19 98 29.9 111/59(81) NSR 0 (11) 10(A) , No pain 12:27:53 64 14 98 19.4 106/53(70) NSR 0 (11) 10(A) , No pain 12:32:09 66 16 97 8.9 105/51(81) NSR 0 (11) 10(A) , No pain 12:36:22 67 10 98 38.2 96/54(77) NSR 0 (11) 10(A) , No pain 12:40:30 67 16 97 31.5 107/58(72) NSR 0 (11) 10(A) , No pain 12:44:44 67 10 98 32.2 106/57(81) NSR 0 (11) 10(A) , No pain 12:48:56 98 33.7 114/59(77) NSR 0 (11) 10(A) , No pain Medications Time Medication Route Dose Verified Delivered Reason Notes Effectiveness by by 12:24:33 0.9% NaCl I.V. 100 Tin Mihaela used for ml/hr Damion Mcdowell videotape recording engineer 12:24:40 Oxygen etCO2 2 Tin Mihaela used for Nasal l/min Damion Mcdowell procedure cannula RN 12:24:48 Lidocaine 2% added 20ml Tin [place] for local to vial Damion Bruno MD anesthetic field 12:24:52 Heparin Flush added 2 Tin Tin used for Bag to bags Damion Bruno MD procedure (1000units/500ml field NS) 12:28:44 Fentanyl I.V. 50 Tin Mihaela for sedation mcg Damion Mcdowell RN 12:29:34 Versed I.V. 2 mg Tin Muiryla for sedation Damion Mcdowell RN 12:37:22 Heparin Bolus I.V. 4000 Tin Muiryla for verif ied units Damion Mcdowell anticoagulation with RN Ravin 12:37:38 Integrilin 5.6 Tin Muiryla for waste d (Bolus 2mg/ml) ml Damion Mcdowell antiplatelet 4.4mL RN therapy 12:38:58 Plavix P.O. 600 Tin Muiryla for mg Damion Mcdowell antiplatelet RN therapy Procedure Log Time Note 11:55:58 Jayce Trinidad RT(R) sent for patient. Start room use. 11:57:10 Signed procedure consent form obtained from patient. 11:57:13 Diagnostic Cath status Urgent 11:57:13 Time tracking: Regular hours (M-F 7:00 - 5:00) 11:57:23 Plan of Care:Hemodynamics will remain stable., Cardiac rhythm will remain stable., Comfort level will be maintained., Respiratory function will remain adequate., Patient/ family verbilizes understanding of procedure., Procedure tolerated without complication., Recovers from procedure without complications.. 11:57:59 Patient allergic to Other allergyMORPHINE, HYDROCODONE, LEVAQUIN 11:58:37 Lab Result : BUN 16 mg/dl 11:58:37 Lab Result : Creatinine 0.8 mg/dl 11:58:37 Lab Result : Hemoglobin 12.3 g/dl 11:58:37 Lab Result : Hematocrit 37.9 % 11:59:21 Lab Result : eGFR NONAFRICAN 75 ml/min 12:00:01 Patient Weight : 132.28 lbs 12:11:07 Patient received from Med II to CCL 1 Alert and oriented. Tansferred to table in Supine position. 12:11:09 Warm blankets applied, and evan hugger turned on for patient comfort. 12:11:09 Correct patient and procedure confirmed by team. 12:11:10 ECG and BP/O2 sat monitors applied to patient. 12:18:12 Vital chart was started 12:19:16 Baseline sample Acquired. 12:19:20 Rhythm: sinus rhythm 12:19:21 Full Disclosure recording started 12:19:21 Pre-procedure instructions explained to patient. 12:19:22 Pre-op teaching completed and patient verbalized understanding. 12:19:23 Family in patients room. 12:19:25 Patient NPO since Midnight. 12:19:28 Is patient on blood thinner?No 12:19:32 Patient diabetic? No. 12:19:34 Patient not . Patient is over age 55. 12:19:36 Previous problem with sedation/anesthesia? No ? 12:19:38 Snore? Yes 12:19:39 Sleep apnea? No 12:19:40 Deviated septum? No 12:19:41 Opens mouth fully? Yes 12:19:43 Sticks out tongue? Yes 12:19:46 Airway obstruction? Yes COPD 12:19:56 Dentures? No ? 12:20:00 Pre procedure: right dorsailis pedis pulse 1+ Palpable, but thready & weak; easily obliterated 12:20:03 Patient pain scale 0/10 ?. 12:20:10 IV patent on arrival in left forearm with 0.9% NaCl at O. 12:20:13 Lab results completed and on chart. 12:20:17 Right groin area was prepped with chlora-prep and draped in sterile fashion 12:20:18 Alarms reviewed by R. N. 12:20:19 Sharps counted by scrub and verified by R.N. 12:20:21 Use device set Femoral Dx 12:20:22 ACIST Syringe (17634) opened to sterile field. 12:20:23 Bag Decanter (2002S) opened to sterile field. 12:20:24 ACIST Hand Control (72508) opened to sterile field. 12:20:24 ACIST Manifold (00011) opened to sterile field. 12:20:26 Tegaderm 4 x 4 (1626W) opened to sterile field. 12:20:27 Medline Cath Pack ([id number]) opened to sterile field. 12:20:28 DIAGNOSTIC Multipack 5Fr catheter set (IH4120) opened to sterile field. 12:20:29 SHEATH 5FR Bonnyman (DVK357) opened to sterile field. 12:20:30 EMERALD Guide Wire (039-520) opened to sterile field. 12:24:33 0.9% NaCl 100 ml/hr I.V. was administered by Mihaela Mcdowell RN; used for procedure; 12:24:40 Oxygen 2 l/min etCO2 Nasal cannula was administered by Mihaela Mcdowell RN; used for procedure; 12:24:48 Lidocaine 2% 20ml vial added to field was administered by Tin Bruno MD; for local anesthetic; 12:24:52 Heparin Flush Bag (1000units/500ml NS) 2 bags added to field was administered by Tin Bruno MD; used for procedure; 12::41 --------ALL STOP TIME OUT------ 12::41 Final Timeout: patient, procedure, and site verified with staff and physician. All members of the team are in agreement. 12:27:44 Right groin site verified by team. 12:27:47 Fire Safety Assessment: A--An alcohol-based skin anteseptic being used preoperatively., C--Open oxygen or nitrous oxide is being used., D--An ESU, laser, or fiber-optic light is being used. 12:27:50 Physical assessment completed. ASA score P 2 - A patient with mild systemic disease as per Tin Bruno MD. 12:27:56 2) 60-89 Mildly reduced kidney function, and other findings (as for stage 1) point to kidney disease. 12:28:00 Maximum allowable contrast does (3.7 X eGFR X 0.75)208 ml. 12:28:03 Sedation plan: IV Moderate Sedation Medication:Versed, Fentanyl 12:28:44 Fentanyl 50 mcg I.V. was administered by Mihaela Mcdowell RN; for sedation; 12:29:34 Versed 2 mg I.V. was administered by Mihaela Mcdowell RN; for sedation; 12::08 Zero performed for pressure channel P1 12:31:18 Procedure started. 12::21 Local anesthetic to right femoral artery with Lidocaine 2% by Tin Bruno MD.INITIAL ACCESS ONLY 12::31 A 5 Fr sheath was inserted into the Right Femoral artery 12::40 A MULTIPACK Pigtail 5 Fr catheter was advanced over the wire and used for Procedure. 12::44 LV gram done using BAEZ 12::47 Injector settings: Ml/sec: 10, Volume: 20, 12:31:51 EF : 60 % 12:31:55 Catheter removed. 12:32:18 A MULTIPACK JL 4.0 5Fr catheter was advanced over the wire and used for Procedure. 12:32:55 LCA angiography performed. 12:32:56 Catheter removed. 12:33:16 A MULTIPACK 3DRC 5Fr catheter was advanced over the wire and used for Procedure. 12:33:58 SANDERS to LAD angiography performed. 12:34:06 SANDERS ATRETIC 12:34:16 RCA angiography performed. 12:34:18 Catheter removed. 12:34:38 A DIAGNOSTIC AR2 MOD 5 Fr catheter (169462G) was advanced over the wire and used for Procedure. 12:35:14 SVG to Circ angiography performed. 12:35:23 SVG to RCA angiography performed. 12:35:38 Catheter removed. 12:35:58 INFLATOR Merit BasixCompak (JC7181) opened to sterile field. 12:35:59 SHEATH 6FR Bonnyman (QDM679) opened to sterile field. 12:36:00 GUIDE 6FR XBLAD 3.5 catheter ([id number]) opened to sterile field. 12:36:00 CHOICE PT Extra Support 182cm wire ([id number]) opened to sterile field. 12:36:07 Sheath upsized to a 6 Fr Short. 12:36:16 6 Fr XBLAD 3.5 guide catheter was inserted over the wire 12:37:22 Heparin Bolus 4000 units I.V. was administered by Mihaela Mcdowell RN; for anticoagulation; verified with Dr. Bruno 12:37:33 CHOICE ES 182 wire advanced. 12:37:38 Integrilin (Bolus 2mg/ml) 5.6 ml was administered by Mihaela Mcdowell RN; for antiplatelet therapy; wasted 4.4mL 12:37:47 Wire advanced across lesion. 12:38:58 Plavix 600 mg P.O. was administered by Mihaela Mcdowell RN; for antiplatelet therapy; 12:39:00 STENT DAMAGED. REMOVED FROM STENT BALLOON. NOT DEPLOYED IN BODY 12:39:04 Inflation number: 1 The stent balloon was then re-inflated across the Mid LAD to 13 LIAN for 0:10 (min:sec) . 12:39:28 Inflation number: 2 The stent balloon was then re-inflated across the Mid LAD to 13 LIAN for 0:00 (min:sec) . 12:41:10 Stent catheter was removed intact over wire. 12:42:25 Place stent Inflation Number: 3 A COBRA RX 3.5 X 30 Stent was prepped and advanced across the Mid LAD . The stent was deployed at 13 LIAN for 0:00 (min:sec) . 12:42:45 Wire removed. 12:42:48 Guide catheter removed. 12:43:13 EXOSEAL 6Fr (EX600) opened to sterile field. 12:43:22 Sheath removed intact; hemostasis achieved with Exoseal to the Right Femoral artery. 12:43:24 Procedure ended.(Physican Out) 12:44:52 Fluoroscopy time 04.50 minutes. 12:44:56 Fluoroscopy dose: 524 mGy 12:44:56 Flurop Dose total: 524 12:45:00 Contrast amount:Isovue 300 89ml. 12:45:02 Sharps counted by scrub and verified by R.N. 12:45:05 Post-op/insertion site Right Femoral artery dressed using a 4 x 4 and Tegaderm. 12:45:07 Post-procedure physical assessment completed. ASA score P 2 - A patient with mild systemic disease as per Tin Bruno MD. 12:45:10 Post procedure rhythm: sinus rhythm 12:45:13 Estimated blood loss: 10 ml 12:45:14 Post procedure instruction explained to patient.Patient verbalizes understanding. 12:45:14 Patient needs reinforcement of post procedure teaching. 12:45:46 Procedure type changed to Cath procedure, Diagnostic procedure, LHC, LHC w/Coronaries w/Grafts, Sedation Charges, Moderate Sedation up to 15 minutes, PCI procedure, Coronary Stent, Coronary Stent Initial 12:50:38 Procedure and supply charges have been captured, reviewed, submitted and are correct. 12:51:08 Procedure Complication : No complications 12:51:09 Vital chart was stopped 12:51:09 See physician's report for complete and final results. 12:51:11 Report given to PCU. 12:51:19 Patient transfered to PCU with Bed. 12:51:21 Procedure ended. 12:51:21 Full Disclosure recording stopped 12:51:24 End room use (Document Last) Intervention Summary Intervention Notes Time ActionType Lesion and Equipment Action# Pressure Duration Attributes Used 12:39:04 Reinflate Mid LAD COBRA RX 1 13 00:10 stent 3.5 X 24 balloon Stent 12:39:28 Reinflate Mid LAD COBRA RX 2 13 00:00 stent 3.5 X 24 balloon Stent 12:42:25 Place stent Mid LAD COBRA RX 3 13 00:00 3.5 X 30 Stent Device Usage Item Name Manufacture Quantity Catalog Number Hospital Part Current Minimal Lot# / Charge Number Stock Stock Serial# Code ACIST Syringe Acist 1 99455 898155 224858 353926 20 (49539) Medical Systems Inc Bag Decanter Microtek 1 2001S 077001 37317 131535 5 (2002S) Medical Inc. ACIST Hand Acist 1 05261 006236 997930 150301 5 Control Medical (74652) Systems Inc ACIST Manifold Acist 1 65540 929995 315456 262920 5 (53977) Medical Systems Inc Tegaderm 4 x 4 3M 1 1626W 385141 346600 918709 5 (1626W) Medline Cath Medline 1 [id number] 837161 95381 280721 5 Pack ([id number]) DIAGNOSTIC Cardinal 1 JH9486 636838 28375 974729 30 Multipack 5Fr Health catheter set (LB7844) SHEATH 5FR Terumo 1 RPM076 667940 764533 370277 5 Bonnyman (UWL961) EMERALD Guide Cardinal 1 502-455 151672 901566 548435 5 Wire (502-455) Health MULTIPACK Cardinal 1 112522 5 Pigtail 5 Fr Health catheter MULTIPACK JL Cardinal 1 994654 5 4.0 5Fr Health catheter MULTIPACK 3DRC Cardinal 1 569928 5 5Fr catheter Health DIAGNOSTIC AR2 Cardinal 1 [id number] 108149 478657 091592 20 MOD 5 Fr Health catheter (586928V) INFLATOR Merit Merit 1 JI0728 196163 419937 222062 15 [facility] (DT4753) SHEATH 6FR Terumo 1 SJK239 001402 419951 625540 40 Bonnyman (OHU551) GUIDE 6FR Cardinal 1 [id number] 823707 604789 327418 10 XBLAD 3.5 Health catheter (54507821) CHOICE PT [place] 1 [id number] 287071 230753 240108 5 Extra Support Scientific 182cm wire ([id number]) COBRA RX 3.5 X Celonova 1 769967 [id number] 4274175 7 [id number] 24 stent Biosciences () COBRA RX 3.5 X Celonova 1 382256 [id number] 8867419 9 [id number] 30 stent Biosciences () EXOSEAL 6Fr Cardinal 1 EX600 708600 579162 125566 10 (EX600) Health Signature Audit [place] Stage Time Signature Unsigned Intra-Procedure 04/01/2019 Miranda Epperson 12:51:50 PM RT(R) Signatures Monitor : Miranda Epperson Signature : RT Date : Time : [address] [address]
[2019-03-31 21:26] LABS: BASOPHILS 0.2 % (0-2); EOSINOPHILS 1.1 % (0-7); HEMATOCRIT 37.7 % (36.0-48.0); HEMOGLOBIN 12.4 g/dL (12-16); IMMATURE GRANULOCYTES 0.3 % (0-5); LYMPHOCYTES 13.3 % (15-50); MCHC 32.9 g/dL (31.0-37.0); MCV 94.3 fL (80.0-100.0); MEAN PLATELET VOLUME 8.9 fL (7.4-10.4); MONOCYTES 7.5 % (2-11); NEUTROPHILS 77.6 % (40-80); PLATELET COUNT 348 10x3/uL (130-400); RDW 13.3 % (11.5-14.5); WBC 13.2 10x3/uL (4.8-10.8)
[2019-03-31 21:35] LABS: APTT 32.7 SECONDS (22.8-39.4); INR 1.13 (0.85-1.17)
[2019-03-31 21:36] LABS: D-DIMER-QUANTITATIVE 1.55 ug/mLFEU (0.20-0.54)
[2019-03-31 21:43] LABS: ALKALINE PHOSPHATASE 91 U/L (46-116); ALT (SGPT) 26 U/L (10-68); BILIRUBIN - TOTAL 0.29 mg/dL (0.2-1.3); CALC OSMOLALITY 280 mosm/kg (275-300); CALCIUM 8.6 mg/dL (8.5-10.1); CARBON DIOXIDE 25.5 mmol/L (21.0-32.0); CHLORIDE - SERUM 105 mmol/L (98-107); CREATININE - SERUM 0.7 mg/dL (0.6-1.3); GLUCOSE 107 mg/dL (74-106); POTASSIUM - SERUM 3.5 mmol/L (3.5-5.1); PROTEIN - SERUM 7.2 g/dL (6.4-8.2); SODIUM 140 mmol/L (136-145); UREA NITROGEN 17 mg/dL (7-18); eGFR NON AFRICAN AMERICAN 88 mL/min (90-120)
[2019-03-31 21:52] VITALS: BP 124/62
[2019-03-31 21:59] LABS: CKMB 0.4 U/L (0.0-3.6); CREATINE KINASE 66 UL (21-215); PRO BNP 551 pg/mL (0-125)
[2019-03-31 22:03] LABS: TROPONIN-I 0.078 ng/mL (0.000-0.060)
[2019-04-01 00:41] VITALS: BP 127/70
--- NOTE | 2019-04-01 00:50 | NUR ---
RECIEVED REPORT FROM ER, ON ARRIVAL PT AAOX4, NO S/S OF DISTRESS, VSS. PT DENIES ANY CHEST OR NECK PAIN AT THIS TIME. PT ARRIVED ON WHEELCHAIR. ADMISSION ASSESMENT COMPLETED. PT IS A GOOD HX. SCD ON, PT PLACED ON TELE, SINUS 81 @ THIS TIME. PT HAD ONE EPISODE OF VOMITING, BUT STATES SHE IS FINE AND DOES NOT NEED NAUSEA MED AT THIS TIME. PT STATES PAIN IS A 2 AT THIS TIME. AND THAT THE DILAUDID GIVEN AT ER MADE HER FEEL BETTER. PT DENIES ANY FURTHER NEEDS AT THIS TIME. WILL CTM. CL WITHIN REACH, BED IN LOW, SR UP X2.
[2019-04-01 01:10] VITALS: BP 122/58; Ht 157.5 cm; Wt 59.9 kg
[2019-04-01 06:05] LABS: BASOPHILS 0.1 % (0-2); EOSINOPHILS 0.1 % (0-7); HEMATOCRIT 37.9 % (36.0-48.0); HEMOGLOBIN 12.3 g/dL (12-16); IMMATURE GRANULOCYTES 0.3 % (0-5); LYMPHOCYTES 6.5 % (15-50); MCH 31.1 pg (26.0-34.0); MCHC 32.5 g/dL (31.0-37.0); MCV 95.7 fL (80.0-100.0); MEAN PLATELET VOLUME 9.1 fL (7.4-10.4); MONOCYTES 2.2 % (2-11); NEUTROPHILS 90.8 % (40-80); PLATELET COUNT 344 10x3/uL (130-400); RBC 3.96 10x6/uL (4.00-5.40); RDW 13.6 % (11.5-14.5); WBC 14.9 10x3/uL (4.8-10.8)
[2019-04-01 06:36] LABS: ALBUMIN 2.9 g/dL (3.4-5.0); ALKALINE PHOSPHATASE 90 U/L (46-116); ALT (SGPT) 28 U/L (10-68); BILIRUBIN - TOTAL 0.31 mg/dL (0.2-1.3); CALC OSMOLALITY 284 mosm/kg (275-300); CALCIUM 8.3 mg/dL (8.5-10.1); CARBON DIOXIDE 29.4 mmol/L (21.0-32.0); CHLORIDE - SERUM 106 mmol/L (98-107); CKMB 0.5 U/L (0.0-3.6); CREATINE KINASE 55 UL (21-215); CREATININE - SERUM 0.8 mg/dL (0.6-1.3); GLUCOSE 147 mg/dL (74-106); MAGNESIUM - SERUM 2.1 mg/dL (1.8-2.4); PHOSPHOROUS 3.3 mg/dL (2.5-4.9); POTASSIUM - SERUM 3.9 mmol/L (3.5-5.1); PROTEIN - SERUM 7.1 g/dL (6.4-8.2); SODIUM 141 mmol/L (136-145); TROPONIN-I 0.062 ng/mL (0.000-0.060); UREA NITROGEN 16 mg/dL (7-18); eGFR NON AFRICAN AMERICAN 75 mL/min (90-120)
[2019-04-01 06:49] VITALS: BP 104/49
[2019-04-01 09:15] VITALS: BP 100/53
--- NOTE | 2019-04-01 12:08 | NUR ---
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 SHE IS ALERT WITH NO C/O VOICED
[2019-04-01 12:35] LABS: CKMB 0.7 U/L (0.0-3.6); CREATINE KINASE 51 UL (21-215); TROPONIN-I 0.056 ng/mL (0.000-0.060)
--- NOTE | 2019-04-01 13:30 | NUR ---
RETURN FROM DAIRY TECHNICIAN WITH RIGHT GROIN DRESSING D/I. NO HEMATOMA OR BRUISING NOTED. AROUSES BUT IS DROWSY. VSS
--- NOTE | 2019-04-01 17:30 | NUR ---
SITTING UP ON SIDE OF BED AT THIS TIME. RIGHT GROIN DRESSING REMAINS WITH DRY WITH SOFT THIGH AND SOFT AROUND SITE. DENIES ANY CURRENT NEEDS. CL IN REACH RESP EVEN WITHOUT LABOR NO C/P.
[2019-04-01 17:37] VITALS: BP 109/55
--- NOTE | 2019-04-01 19:41 | NUR ---
ROUNDS COMPLETED. VSS, AAOX3, NO S/S OF DISTRESS. PT IN BED WITH EYES OPEN. DRESSING TO RIGHT GROIN APPEARS INTACT. PT DENIES NEED FOR PAIN. PT VOICED CONCERN ABOUT WANTING TO SPEAK WITH FIRER DIESEL LOCOMOTIVE. WILL NOTIFY NUCLEAR POWERPLANT SUPERVISOR GAMBRELER. FAMILY AT BEDSIDE. WILL CTM. CL WITHIN REACH, BED IN LOW, SR UP X2.
[2019-04-01 20:00] VITALS: BP 100/51
--- NOTE | 2019-04-01 21:22 | NUR ---
NURSE MEDICAL OFFICE ASSISTANT INSTRUCTOR STATES PT BP 100/51. REASSESSED BP 95/55. NOTIFIED PLUMBING CONTRACTORBette SINGH. PLUMBING CONTRACTOR STATES TO HOLD NORVASC AND GIVE BYSTOLIC AND CRESTOR, ALSO INCREASE RATE OF NS TO 100MLS/HR.
[2019-04-02] VITALS: BP 106/49
[2019-04-02 04:00] VITALS: BP 100/52
[2019-04-02 06:53] LABS: BASOPHILS 0.1 % (0-2); EOSINOPHILS 0 % (0-7); HEMATOCRIT 32.5 % (36.0-48.0); HEMOGLOBIN 10.5 g/dL (12-16); IMMATURE GRANULOCYTES 0.2 % (0-5); LYMPHOCYTES 7.8 % (15-50); MCH 30.5 pg (26.0-34.0); MCHC 32.3 g/dL (31.0-37.0); MCV 94.5 fL (80.0-100.0); MEAN PLATELET VOLUME 9.4 fL (7.4-10.4); MONOCYTES 2.4 % (2-11); NEUTROPHILS 89.5 % (40-80); PLATELET COUNT 347 10x3/uL (130-400); RBC 3.44 10x6/uL (4.00-5.40); RDW 13.3 % (11.5-14.5); WBC 16.1 10x3/uL (4.8-10.8)
[2019-04-02 06:58] LABS: CALC OSMOLALITY 283 mosm/kg (275-300); CALCIUM 7.6 mg/dL (8.5-10.1); CARBON DIOXIDE 26.3 mmol/L (21.0-32.0); CHLORIDE - SERUM 107 mmol/L (98-107); CREATININE - SERUM 0.7 mg/dL (0.6-1.3); GLUCOSE 162 mg/dL (74-106); MAGNESIUM - SERUM 2.1 mg/dL (1.8-2.4); POTASSIUM - SERUM 4.1 mmol/L (3.5-5.1); SODIUM 140 mmol/L (136-145); UREA NITROGEN 16 mg/dL (7-18); eGFR NON AFRICAN AMERICAN 88 mL/min (90-120)
[2019-04-02 06:59] LABS: PHOSPHOROUS 2.2 mg/dL (2.5-4.9)
--- NOTE | 2019-04-02 07:10 | NUR ---
REPORT RECEIVED. ALERT ABLE TO VOICE NEEDS. RIGHT GROIN SITE IS CLEAR WITH NO BLEEDING, BRUISING OR HEMATOMA NOTED.
[2019-04-02 08:03] VITALS: BP 123/64
[2019-04-02 12:06] VITALS: BP 130/69
[2019-04-02] MEDS ORDERED: PREDNISONE10 MG PO (16:48)
[2019-04-02] MEDS ORDERED: PLAVIX75 MG PO (17:07)
--- NOTE | 2019-04-02 18:15 | NUR ---
DISCHARGE INSTRUCTIONS EXPLAINED AT THIS TIME IN DETAIL. SHE KNOWS IF RIGHT GROIN STARTS TO BLEED APPLY PRESSURE AND IF IT DOESNT STOP CALL 911. SHE STATES SHE HAS HAD MULTIPLE HEART CATHS BEFORE. RESP EVEN WITHOUT LABOR. VSS SALINE LOCK D/C WITH CATH INTACT MINIMAL BLEEDING NOTED. TELMETRY RETURNED TO GOLF CLUB REPAIRER. SHE WAS TOOK DOWN IN W/C TO PRIVATE AUTO OF DAUGHTERS.
[2019-04-02 19:13] VITALS: BP 119/63
--- NOTE | 2019-04-03 08:44 | MORECARE ---
CASE MANAGEMENT DISCHARGE SUMMARY PATIENT: MARITA LARRY UNIT: [id number] ADM DATE: 03/31/19 AGE: 68 : 50 SEX: F ROOM/BED: D.7814 AUTHOR: ZHAO ANTONIO PHYSICIAN: REFERRING PHYSICIAN: TAIWO ERICKSON MD DATE OF SERVICE: 04/03/19 Discharge Plan Patient Name: MARITA LARRY [facility] [facility] 1950 Planned Disposition: Home Anticipated Discharge Date: 04/02/19 Discharge Date: 04/02/2019 Expected LOS: 2 Initial Reviewer: [email or web address] Initial Review Date: 04/03/2019 Generated: 04/03/19 9:43 am Patient Name: MARITA LARRY Page 11953 at 0844 All edits/amendments must be made on the electronic document DICTATION DATE: 04/03/19 0843 CHIEF STATION ENGINEER: MARIA ANTONIA 04/03/19 0843 RPT#: [id number] DC DATE:04/02/19 STATUS: DIS IN [facility] [address] [place] [address] END OF REPORT
--- NOTE | 2019-04-06 18:38 | CN ---
PATIENT NAME:MARITA LARRY MEDICAL RECORD: [id number] : 50 LOCATION:D. D.2138 ADMIT DATE: 03/31/19 ACCOUNT: [id number] CONSULTING PHYSICIAN: ANGUS ARAIZA MD REFERRING PHYSICIAN: TAIWO ERICKSON MD DATE OF CONSULTATION: 04/01/2019 DIAGNOSES: 1. Non-Q-wave myocardial infarction. 2. Coronary artery disease. 3. Status post coronary artery bypass graft surgery. 4. Atrial fibrillation. 5. Status post ablation. 6. Smoking history. 7. Chronic obstructive pulmonary disease. 8. Hypertension. 9. Hyperlipidemia. HISTORY OF PRESENT ILLNESS: Mrs. Larry presents with 2 days of severe chest pain radiating to her neck and her back. Her troponin is positive for a non-Q-wave myocardial infarction. She has a history of coronary artery disease, 3-vessel bypass at the [facility] [place] last summer. She as well had an ablation done at [facility] last summer for atrial fibrillation. She remains in sinus rhythm. PHYSICAL EXAMINATION: GENERAL APPEARANCE: Well-nourished, well-developed, appears stated age. Level of distress, comfortable. PSYCHIATRIC: Mental status, alert, normal affect. Orientation, oriented to time, place and person. EYES: Lids and conjunctiva, noninjected. No discharge, no pallor. ENT: Lips, teeth, gums, normal dentition. Oropharynx, no cyanosis, no pallor. NECK: Carotid arteries, bilateral normal upstroke, no bruits, no thrills. JUGULAR VEINS: No jugular venous pressure or distention. CERVICAL LYMPH NODES: Nontender, nonenlarged. THYROID: Not enlarged. Nontender. No nodules. LUNGS: Respiratory effort, unlabored. CHEST: Normal curvature. No thoracic deformity. No chest wall tenderness. Percussion, resonant. Auscultation, clear. No wheezes, no rales, no rhonchi. CARDIOVASCULAR: Precordial exam, nondisplaced. No heaves or pericardial thrills. Rate and rhythm, regular. Heart sounds, normal S1, normal S2. No S3, no gallop, no rub. Systolic murmur, not heard. Diastolic murmur, not heard. EXTREMITIES: No cyanosis, no edema. Peripheral pulses, full and equal in all extremities, except as noted. No bruits appreciated. ABDOMEN: Soft, nondistended. Normal aorta. No bruit. Nontender. No masses. Liver, nontender, no hepatomegaly. Spleen, nontender, no splenomegaly. MUSCULOSKELETAL: No joint tenderness. No joint swelling. No erythema. NEUROLOGICAL: Normal gait, normal strength, normal tone. SKIN: Warm and dry. OVERALL IMPRESSION: Non-Q-wave myocardial infarction. We will proceed with coronary angiography. Further care depends upon findings of the angiography. TRANSINT:[id number] Voice Confirmation ID: [id number] DOCUMENT ID: [id number] CONSULT REPORT [id number] MARITA LARRY, ANGUS RODRÍGUEZ at 1838 CC: [id number] DICTATION DATE: 04/01/19 0849 ZINC SKIMMER: 04/01/19 1022 DIS IN 04/02/19 [facility] [address] [place] [address]
--- NOTE | 2019-04-10 16:51 | OP ---
PATIENT NAME: MARITA LARRY MEDICAL RECORD: [id number] :50 LOCATION:D.M2 D.2138 ADMISSION DATE:03/31/19 SURGEON: ANGUS ARAIZA MD DATE OF OPERATION: 04/01/2019 PROCEDURES: 1. PTCA stent LAD. 2. Left heart catheterization. 3. Selective coronary angiography. 4. Vein graft angiography. 5. SANDERS angiography. INDICATION: Angina and coronary artery disease. PROCEDURE IN DETAIL: After informed consent was obtained and after a detailed description of risks, benefits as well as alternative therapies, the patient elected to proceed with angiogram and angioplasty. The right femoral area was prepped and draped in normal sterile fashion. Right femoral artery was cannulated via modified Seldinger technique with placement of 6-Arabic sheath. All catheters exchanged through this sheath. FINDINGS: The left ventriculogram was performed in standard 30-degree BAEZ view, reveals good cardiac wall motion, ejection fraction 55% to 60%. SELECTIVE CORONARY ANGIOGRAPHY: 1. Left main has no significant angiographic disease. 2. Left anterior descending has 90% stenosis in the proximal mid vessel. 3. SANDERS to the LAD is closed. 4. The left circumflex is closed. 5. Vein graft to the circumflex is widely patent. Distal circumflex is widely patent. 6. Right coronary is 95% stenosed. 7. Vein graft to the right coronary artery is patent. Distal right coronary artery is diffusely diseased, but patent. PTCA STENT OF THE LAD: The stent used was a 3.5 x 30 mm Cobra. Result was 0% residual stenosis. OVERALL IMPRESSION: Successful percutaneous transluminal coronary angioplasty stent of the left anterior descending going from 90% initial stenosis to 0% residual. TRANSINT:[id number] Voice Confirmation ID: [id number] DOCUMENT ID: [id number] ANGUS ARAIZA MD at 1653 CC: [id number] DICTATION DATE: 04/10/19 1019 AUTOMOTIVE GENERAL SALES MANAGER: 04/10/19 1031 DIS IN 04/02/19 [place] [address] [place] [address]
== END 2019-04-02 18:15 | disposition home or self-care (01) ==
LOC: D.ER 20:31 → D.M2 23:52 → OBSVTIME 23:52 → D.M2 04-02 18:15
PROVIDERS: Family Medicine; ADMIT Family Medicine; ATTEND Family Medicine
DX: I21.4 Non-ST elevation (NSTEMI) myocardial infarction (principal); I48.91 Unspecified atrial fibrillation; I25.110 Atherosclerotic heart disease of native coronary artery with unstable angina pectoris; J44.9 Chronic obstructive pulmonary disease, unspecified; E78.5 Hyperlipidemia, unspecified; E05.00 Thyrotoxicosis with diffuse goiter without thyrotoxic crisis or storm; I10 Essential (primary) hypertension; Z87.891 Personal history of nicotine dependence

== ENCOUNTER → 2020-03-30 11:34 | Outpatient (CLI) | payer MEDICARE, BC ==
[~2020-03-30 11:34] MED LIST changes: +PLAVIX75 MG PO; +PREDNISONE10 MG PO
== END | disposition home or self-care (01) ==
LOC: D.LAB 11:34
PROVIDERS: ATTEND Internal Medicine Pulmonary Disease
DX: Z11.59 Encounter for screening for other viral diseases (principal)

== ENCOUNTER → 2020-04-01 13:12 | Outpatient (CLI) | payer MEDICARE, BC | END | disposition home or self-care (01) | LOC: D.RT 01-25 10:30 | PROVIDERS: ATTEND Internal Medicine Pulmonary Disease | DX: J44.9 Chronic obstructive pulmonary disease, unspecified (principal) ==

== ENCOUNTER 2021-02-20 20:20 | Emergency (ER) | payer MEDICARE, BC ==
[~2021-02-20] VITALS: Ht 157.5 cm; Wt 69.1 kg
[2021-02-20 20:23] VITALS: Ht 157.5 cm; Wt 69.1 kg
[2021-02-20] MEDS ORDERED: HYDROCHLOROTH12.5 M1 PO (20:26)
[2021-02-20] MEDS ORDERED: TAPAZOLE 5 MG TA5 MG PO (20:27)
[2021-02-20] MEDS ORDERED: CRESTOR5 MG PO (20:27)
[2021-02-20] MEDS ORDERED: ZYRTEC10 MG PO (20:28)
[2021-02-20] MEDS ORDERED: ZOFRAN4 MG PO (20:28)
[2021-02-20] MEDS ORDERED: ZINC10 MG PO (20:30)
[2021-02-20] MEDS ORDERED: FLUTICASONE PRO16 GM NASAL (20:31)
[2021-02-20] MEDS ORDERED: VITAMIN D325 MC1 PO (20:31)
[2021-02-20 21:35] VITALS: BP 153/63
== END 2021-02-20 21:35 | disposition home or self-care (01) ==
LOC: D.ER 20:20
DX: K59.01 Slow transit constipation (principal); I10 Essential (primary) hypertension; J44.9 Chronic obstructive pulmonary disease, unspecified; Z72.0 Tobacco use; R10.30 Lower abdominal pain, unspecified

== ENCOUNTER → 2021-03-10 13:10 | Outpatient (CLI) | payer MEDICARE, BC ==
[2021-02-20 20:23] VITALS: BMI 27.8
[~2021-03-10 13:10] MED LIST changes: +FLUTICASONE PRO16 GM NASAL; +HYDROCHLOROTH12.5 M1 PO; +TAPAZOLE 5 MG TA5 MG PO; +VITAMIN D325 MC1 PO; +ZINC10 MG PO; +ZOFRAN4 MG PO; +ZYRTEC10 MG PO
== END | disposition home or self-care (01) ==
LOC: D.LAB 13:10
PROVIDERS: ATTEND Internal Medicine Pulmonary Disease
DX: J44.9 Chronic obstructive pulmonary disease, unspecified (principal); Z11.52 Encounter for screening for COVID-19

== ENCOUNTER → 2021-03-15 10:09 | Outpatient (CLI) | payer MEDICARE, BC ==
[2021-02-20 20:23] VITALS: BMI 27.8
== END | disposition home or self-care (01) ==
LOC: D.RT 10:00
PROVIDERS: ATTEND Internal Medicine Pulmonary Disease
DX: J44.9 Chronic obstructive pulmonary disease, unspecified (principal)